=== PATIENT | male | born 1980 | race Two or more races ===

== ENCOUNTER 2023-12-01 16:55 | Emergency (ER) | payer SELFPAY ==
[2023-12-01 16:55] VITALS: BP 162/107; PULSE 94; RESP 22; TEMP 36.9; O2SAT 100
[2023-12-01] MEDS: ASPIRIN 81 MG CHEWABLE TABLET 324 MG PO (16:55)
--- NOTE | 2023-12-01 17:59 | ED.CHESTPAIN ---
HPI - Chest Pain General Chief Complaint: Chest Pain Stated Complaint: chest pains Time Seen by Provider: 12/01/23 16:55 Source: patient and family Mode of arrival: ambulatory Limitations: no limitations History of Present Illness HPI narrative: Bob is a 43 year old male patient presenting to the clinic today with complaints of midsternal chest pain and shortness of breath. Family member reports symptoms started approximately 20 minutes prior to arrival. Unable to get any medical history as patient does not speak Khmer. 911 was called as family members were agitated and pushing this provider in the room- demanding for 911 to be called for the patient to go to the emergency room right now. Related Data Home Medications Medication Instructions Recorded Confirmed No Home Medications 12/01/23 12/01/23 Allergies Allergy/AdvReac Type Severity Reaction Status Date / Time No Known Allergies Allergy Verified 12/01/23 17:36 Review of Systems Review of Systems: Pertinent positives per HPI. Patient denies any fever, chills, rash, headache, visual changes, dizziness, cough, runny nose, sore throat, shortness of breath, chest pain, palpitations, nausea, vomiting, diarrhea, constipation, abdominal pain, or any urinary issues. PMFSH Comments At the time of my signature, I reviewed and agree with the nursing past medical, surgical, social, and family history. There is no relevant family history pertinent to the patient complaint. Exam Narrative: General: Well-developed, well nourished, in acute distress/ill-appearing Head: Normocephalic, atraumatic. Cardio: Regular rate and rhythm, s1 and s2 normal, no murmur appreciated. Resp: Clear to auscultation bilaterally, no rhonchi, rales, wheezing or rubs. Extremities: No deformity, no edema, no cyanosis, capillary refill less than 2 seconds, peripheral pulses palpable and strong. Integumentary: [place], warm, and diaphoretic, intact without lesion, no rashes. Course Course Emergency Course: Portions of this record may have been created with voice recognition software. Level of Care: Express Care Visit Vital Signs Vital signs: Vital signs reviewed MDM - Chest Pain MDM Narrative Medical decision making narrative: At the time of visit patient on the exam table. Patient appears to be nontoxic. EKG: EKG shows normal sinus rhythm with heart rate of 68 beats per minute with possible right bundle-branch block. No ST elevation, depression, or T-wave inversion noted. Medication given: 324mg baby aspirin Plan: 18 gauge INT was inserted into the right AC. Four baby aspirins were administered. Recommend transfer to the emergency room for further evaluation. Contacted EMS for transport. Report was given to Dr. Quintana at [facility] as well as Carlin Sharma in [facility]. EMS loaded and transported the patient to the ER. Differential Diagnosis Differential diagnosis: Likely fracture of rib, pneumothorax, stable angina, unstable angina pectoris, atypical chest pain, st elevation myocardial infarction, costochondritis and chest pain ECG Data EKG #1: Attestation: I personally reviewed and interpreted this ECG as follows: ECG completion date: 12/01/23 ECG completion time: 16:59 Prior ECG tracings: not available for review Interpretation: EKG shows normal sinus rhythm with a heart rate 60 beats per minute with possible right bundle-branch block. No ST elevation, depression, or T-wave inversion noted. DC interval is 190 milliseconds, QRS duration is 160 milliseconds, QT-QTC is 380-398 milliseconds, P-R-T axis is 30 77 14 Discharge Plan Discharge Clinical Impression: Chest pain Qualifiers: Chest pain type: unspecified Qualified Code(s): R07.9 - Chest pain, unspecified Patient Disposition: Acute Care Hospital Condition: Stable Instructions: Antibiotic Form Prescriptions: No Action No Home Medications Follow-up/R
--- NOTE | 2023-12-01 19:04 | ECG_ITS ---
Test Date: 2023-12-01 16:59:50 Measurements Intervals [place] Rate: 68 P: 30 NM: 190 QRS: 77 QRSD: 116 T: 14 QT: 380 QTc: 406 Interpretive Statements SINUS RHYTHM INTERPRETATION BASED ON A DEFAULT AGE OF 40 YEARS No previous ECG available for comparison Electronically Signed On 12-02-2023 17:04:08 CDT by Lakia Nieto M.D.
== END 2023-12-01 17:10 | disposition short-term general hospital (02) ==
PROVIDERS: Emergency Provider Nurse Practitioner Family
DX: R07.9 Chest pain, unspecified (principal)
CPT/HCPCS: 93005; 99213; 99215; A9270; G0463

== ENCOUNTER 2023-12-01 17:29 | Observation (INO) | payer SELFPAY ==
[2023-12-01] VITALS (8 sets, daily range): BP systolic 110–164; BP diastolic 61–96; PULSE 62–74; RESP 14–20; TEMP 36.8–36.9; O2SAT 97–99; BMI 36.3
--- NOTE | ~2023-12-01 | CT_ITS ---
EXAMINATION: CTA chest PE protocol DATE: 12/01/2023 20:59 INDICATION: CP TECHNIQUE: Computed tomography angiography (CTA) of the chest was performed with 100 mL Omnipaque-350 intravenous contrast timed to evaluate the pulmonary arteries. Coronal maximum intensity projection 3D-reconstructions were created by the technologist. The dose-length product (DLP) was 653.78 mGy-cm. Automated exposure control and iterative reconstruction technique were employed. COMPARISON: X-ray chest, same date. FINDINGS: Lung parenchyma and airways: Minimal dependent atelectasis. Patent airways. Pleura: Unremarkable. Thoracic inlet, axillae and chest wall: Unremarkable. Thoracic aorta: No significant dilation. No dissection. Mediastinum: Normal. Heart and pericardium: Normal. Coronary artery calcifications: Absent. Upper abdomen: No significant finding. Bones: No acute osseous finding. Pulmonary arteries: Study quality: Motion artifact. Streak artifact from the contrast column limits e valuation of the segmental right upper lobe arteries. No pulmonary emboli detected. IMPRESSION: No CT evidence of acute pulmonary embolus, within the limitations noted above. No acute process detected in the chest. Reviewed, dictated and finalized at location K.
--- NOTE | ~2023-12-01 | XR_ITS ---
EXAMINATION: XR chest 1V portable Exam Date/Time: 12/01/2023 18:10 CDT HISTORY: cp Comparison: None. RESULT: Lines, tubes, and devices: None. Lungs and pleura: Clear. Cardiomediastinal silhouette: Normal. Other: No acute osseous or upper abdominal finding. IMPRESSION: No acute cardiopulmonary process. Reviewed, dictated and finalized at location K.
--- NOTE | 2023-12-01 17:31 | ECG_ITS ---
Test Date: 2023-12-01 17:30:33 Measurements Intervals [place] Rate: 69 P: 31 NH: 188 QRS: 75 QRSD: 133 T: 96 QT: 411 QTc: 441 Interpretive Statements SINUS RHYTHM Compared to ECG 12/01/2023 16:59:50 No significant changes Electronically Signed On 12-02-2023 17:06:11 CDT by Lakia Nieto M.D.
[2023-12-01 17:44] LABS: Basophils Absolute Auto 0.1 K/mm3 (0.0-0.1); Basophils Percent Auto 0.5 % (0.2-1.2); Eosinophils Absolute Auto 0.3 K/mm3 (0-0.3); Eosinophils Percent Auto 2.8 % (0-4.4); Hematocrit 46.7 % (42.0-52.0); Hemoglobin 16.3 g/dL (14.0-18.0); Immature Granulocyte Absolute 0.02 K/mm3 (0.00-0.031); Immature Granulocyte Percent A 0.2 % (0-0.5); Lymphocytes Absolute Auto 3.67 K/mm3 (0.9-3.2); Lymphocytes Percent Auto 40.1 % (18.3-44.2); Mean Corpuscular HGB Conc 34.9 g/dl (32-36); Mean Corpuscular Hemoglobin 32.7 pg (26-34); Mean Corpuscular Volume 93.6 fl (80-100); Mean Platelet Volume 9.6 fl (7.4-10.4); Monocytes Absolute Auto 0.8 K/mm3 (0.1-0.6); Monocytes Percent Auto 8.4 % (2.6-8.5); Neutrophils Absolute Auto 4.4 K/mm3 (1.3-6.7); Platelet Count Result 209 k/mm3 (150-375); Red Blood Count 4.99 M/mm3 (4.6-6.20); Red Cell Distribution Width 13.2 % (11.5-14.5); White Blood Count 9.2 K/mm3 (4.5-10.0)
--- NOTE | 2023-12-01 19:06 | ED.CHESTPAIN ---
HPI - Chest Pain General Chief Complaint: Chest Pain <Eddie Quintana MD - Last Filed: 12/02/23 11:48> Stated Complaint: CP, STEMI <Eddie Quintana MD - Last Filed: 12/02/23 11:48> Time Seen by Provider: 12/01/23 17:38 <Eddie Quintana MD - Last Filed: 12/02/23 11:48> History of Present Illness HPI narrative: 43-year-old male presented to the emergency department for evaluation for chest pain. Patient initially had approximately 30 minutes of chest pain and presented to the urgent care. Patient's EKG is were actually concerning for possible STEMI so patient was transferred by EMS to the emergency department. STEMI was called in the field but upon arrival to the emergency department patient was pain free an EKG showed no evidence of acute STEMI. Patient does speak Arabic and he does have a family member here to translate for him. Family states that the patient has no significant past medical history, no history of coronary artery disease and takes no medications. <Eddie Quintana MD - Last Filed: 12/02/23 11:48> Related Data Home Medications: Home Medications Medication Instructions Recorded Confirmed No Home Medications 12/01/23 12/01/23 <Eddie Quintana MD - Last Filed: 12/02/23 11:48> Allergies/Adverse Reactions: Allergies Allergy/AdvReac Type Severity Reaction Status Date / Time No Known Allergies Allergy Verified 12/01/23 17:36 <Eddie Quintana MD - Last Filed: 12/02/23 11:48> Review of Systems Review of Systems: All systems reviewed & are unremarkable except as noted in HPI and below <Eddie Quintana MD - Last Filed: 12/02/23 11:48> [facility] Social History Social History: Social History Smoking packs per day: 1 Smoking cigarettes per day: 20.0 Years smoked: 14 Smoking pack-years: 14.00 Smoking status: Current every day smoker Tobacco type: cigarettes Alcohol intake: former Substance use: never Do You Feel Safe in your Home?: Yes Lack of Transportation: No Lack of Food: Never True Current Housing: I Have Housing Concerned About Future Housing: No Difficulty Paying Gas/Electric Bills: No Difficulty Paying for Meds: No Currently Unemployed: YES Education: Trade/Vocational Certificate Difficulty w/ Childcare or Family Care: No Gender identity (if verbalized by the patient): Male Sexual Orientation (if Verbalized by the Patient): Straight or Heterosexual Spiritual care concerns: No <Eddie Quintana MD - Last Filed: 12/02/23 11:48> Exam Narrative: APPEARANCE: Well appearing, no pain, no distress, well-nourished. HEAD: normocephalic, atraumatic. EYES: PERRLA/EOMI, conjunctivae clear. NOSE: Normal no drainage EARS:TMS clear with good light reflex. THROAT: Pharynx clear, no exudate. NECK: Supple. No adenopathy, no masses. RESPIRATORY: Airway patent, respirations nonlabored. Clear to auscultation bilaterally, no rales, rhonchi, wheezing. CARDIOVASCULAR: Regular rate and rhythm without murmurs rubs or gallops. ABDOMINAL: Soft, nontender, nondistended, normal bowel sounds MUSCULOSKELETAL: Moves all extremities. Strength/ROM intact, No edema, No calf tenderness. NEURO: Alert. Cranial nerves II through XII intact. Good gait. Good coordination SKIN: Warm, dry. Normal Color <Eddie Quintana MD - Last Filed: 12/02/23 11:48> Course Vital Signs Vital signs: Vital Signs Temperature 98.2 F 12/01/23 17:28 Pulse Rate 73 12/01/23 17:28 Respiratory Rate 20 12/01/23 17:28 Blood Pressure 164/94 H 12/01/23 17:28 Pulse Oximetry 97 12/01/23 17:28 Oxygen Delivery Room Air 12/01/23 17:28 Temperature 97.2 F L 12/02/23 11:31 Pulse Rate 67 12/02/23 11:32 Respiratory Rate 18 12/02/23 11:31 Blood Pressure 156/89 H 12/02/23 11:31 Pulse Oximetry 95 12/02/23 11:31 Oxygen Delivery Room Air 12/02/23 08:57 Fraction of Inspired
[2023-12-01 19:08] LABS: Alanine Aminotransferase 17 U/L (6-50); Albumin Level 4.1 g/dL (3.5-5.1); Alkaline Phosphatase 76 U/L (38-126); Anion Gap 6 mmol/L (4-12); Aspartate Amino Transferase 21 U/L (17-59); Bilirubin,Total 0.6 mg/dL (0.2-1.3); Blood Urea Nitrogen 11 mg/dL (9-20); Calcium 8.7 mg/dL (8.4-10.2); Carbon Dioxide 27 mmol/L (22-30); Chloride 104 mmol/L (98-107); Cholesterol 170 mg/dL (0-200); Estimated Glomerular Filt Rate > 60; Glucose 117 mg/dL (65-110); HDL Direct 32 mg/dL; Potassium 3.6 mmol/L (3.4-5.0); Sodium 137 mmol/L (137-145); Triglycerides 120 mg/dL (<150)
[2023-12-01 19:12] LABS: INR 1.1; Prothrombin Time 14.4 Seconds (11.1-14.7)
[2023-12-01 19:13] LABS: Partial Thromboplastin Time 27.2 Seconds (22.3-36.8)
[2023-12-01 19:19] LABS: LDL Cholesterol Direct 115 mg/dL
[2023-12-01 19:29] LABS: Troponin I 0.167 ng/mL (0.000-0.034)
--- NOTE | 2023-12-01 20:59 | PC.NURSE ---
Attempted to call report to IMU and was told RN would have to call back in a couple of minutes.
--- NOTE | 2023-12-01 21:07 | PM.IMHP ---
H&P: HPI History of Present Illness Date/Time: 12/01/23 21:07 Chief Complaint: Chest pain Narrative: 43-year-old male presented to the emergency department for evaluation for chest pain. Patient initially had approximately 30 minutes of chest pain and presented to the urgent care. he waas driving when the pain started, middle of the chest, non radiating, sharp and severe. felt a bit nauseated and sweaty when that happened. callled his son and went to urgent care. Patient's EKG is were actually concerning for possible STEMI so patient was transferred by EMS to the emergency department. STEMI was called in the field but upon arrival to the emergency department patient was pain free an EKG showed no evidence of acute STEMI. Patient does speak Bulgarian and he does have a family member here to translate for him. Family states that the patient has no significant past medical history, no history of coronary artery disease and takes no medications. he has intermittent chest pain since then but has not had since 4 pm today. it resolved with nitro and aspirin administration in the urgent care Review of Systems Review of Systems: - CONSTITUTIONAL: Denies weight loss, fever and chills. - HEENT: Denies changes in vision and hearing - RESPIRATORY: Denies SOB and cough. - CV: Denies palpitations and reports CP. - GI: Denies abdominal pain, nausea, vomiting and diarrhea. - : Denies dysuria and urinary frequency. - MSK: Denies myalgia and joint pain. - SKIN: Denies rash and pruritus. - NEUROLOGICAL: Denies headache and syncope. - PSYCHIATRIC: Denies recent changes in mood. Denies anxiety and depression. [facility] Social History Social History Smoking packs per day: 1 Smoking cigarettes per day: 20.0 Years smoked: 14 Smoking pack-years: 14.00 Smoking status: Current every day smoker Tobacco type: cigarettes Alcohol intake: former Substance use: never Do You Feel Safe in your Home?: Yes Lack of Transportation: No Lack of Food: Never True Current Housing: I Have Housing Concerned About Future Housing: No Difficulty Paying Gas/Electric Bills: No Difficulty Paying for Meds: No Currently Unemployed: YES Education: Trade/Vocational Certificate Difficulty w/ Childcare or Family Care: No Gender identity (if verbalized by the patient): Male Sexual Orientation (if Verbalized by the Patient): Straight or Heterosexual Spiritual care concerns: No Meds Home Medications and Allergies Home Medications Medication Instructions Recorded Confirmed Type No Home Medications 12/01/23 12/01/23 History Allergies Allergy/AdvReac Type Severity Reaction Status Date / Time No Known Allergies Allergy Verified 12/01/23 17:36 Vital Signs Vital Signs - 24 hr 12/01/23 17:28 12/01/23 17:38 12/01/23 18:02 Temperature 98.2 F Pulse Rate 73 74 Respiratory Rate 20 18 Blood Pressure 164/94 H 125/62 Pulse Oximetry 97 97 Oxygen Delivery Room Air Room Air 12/01/23 18:32 12/01/23 19:37 12/01/23 20:30 Temperature Pulse Rate 71 62 64 Respiratory Rate 18 20 14 Blood Pressure 118/93 H 110/74 115/61 Pulse Oximetry 98 97 99 Oxygen Delivery Exam Narrative: APPEARANCE: Well appearing, no pain, no distress, well-nourished. HEAD: normocephalic, atraumatic. EYES: PERRLA/EOMI, conjunctivae clear. NOSE: Normal no drainage EARS:TMS clear with good light reflex. THROAT: Pharynx clear, no exudate. NECK: Supple. No adenopathy, no masses. RESPIRATORY: Airway patent, respirations nonlabored. Clear to auscultation bilaterally, no rales, rhonchi, wheezing. CARDIOVASCULAR: Regular rate and rhythm without murmurs rubs or gallops. ABDOMINAL: Soft, nontender, nondistended, normal bowel sounds MUSCULOSKELETAL: Moves all extremities. Strength/ROM intact, No edema, No calf tenderness. NEURO: Alert. Cranial nerves II through XII inta
--- NOTE | 2023-12-01 21:20 | PC.NURSE ---
Attempted to get pt into wheelchair to take upstairs, pt insisted on stepping outside for fresh air while making a motion suggesting smoking a cigarette. This RN informed pt that he is not allowed to step out side nor is he allowed to smoke. Pt stated if he did not smoke he would be leaving the hospital and started walking to exit. ED Charge, Lori informed and told pt he is not allowed to step outside to smoke because this is a non smoking facility. YOBANY Sandoval offered pt a nicotine patch. After debating back and forth, pt agreed to go upstairs for admission. ED security assisted and dimension warehouse supervisor notified.
--- NOTE | 2023-12-01 21:25 | ADMGEN ---
This patient, Bob Rojas, was admitted to IMU Room 201-01. Patient/family oriented to hospital policies and general routines including ID bracelet, bed and alarms, visiting hours, pain management, procedures, bathroom and other care routines, personal items, smoking policy, room service/diet, and visiting hours. Information on how to activate the Rapid Response Team has been discussed. Patient/Family are encouraged to report perceived risks to care and to ask questions if they do not understand what they are told or what they should do.
[2023-12-01] MEDS: HEPARIN SOD/D5W 100 UNITS/ML 25,000 UNITS/250 ML BAG 13 UNITS IV CONT (22:03)
[2023-12-01 22:04] LABS: Basophils Absolute Auto 0.1 K/mm3 (0.0-0.1); Basophils Percent Auto 0.6 % (0.2-1.2); Eosinophils Absolute Auto 0.1 K/mm3 (0-0.3); Eosinophils Percent Auto 1.6 % (0-4.4); Hematocrit 46.4 % (42.0-52.0); Hemoglobin 15.9 g/dL (14.0-18.0); Immature Granulocyte Absolute 0.03 K/mm3 (0.00-0.031); Immature Granulocyte Percent A 0.4 % (0-0.5); Lymphocytes Percent Auto 32.2 % (18.3-44.2); Mean Corpuscular HGB Conc 34.3 g/dl (32-36); Mean Corpuscular Volume 93.4 fl (80-100); Mean Platelet Volume 9.4 fl (7.4-10.4); Monocytes Absolute Auto 0.5 K/mm3 (0.1-0.6); Monocytes Percent Auto 5.7 % (2.6-8.5); Neutrophils Percent Auto 59.5 % (45.5-73.1); Platelet Count Result 207 k/mm3 (150-375); Red Blood Count 4.97 M/mm3 (4.6-6.20); Red Cell Distribution Width 13.2 % (11.5-14.5); White Blood Count 8.4 K/mm3 (4.5-10.0)
[2023-12-01] MEDS: HEPARIN SODIUM 5,000 UNITS/ML VIAL 6000 UNITS IV PUSH (22:04)
[2023-12-01 22:21] LABS: Hemoglobin A1C 5.9 % (<5.7)
[2023-12-01 22:26] LABS: INR 1.1; Prothrombin Time 14.8 Seconds (11.1-14.7)
[2023-12-01 22:45] LABS: Cholesterol 165 mg/dL (0-200); HDL Direct 30 mg/dL; Triglycerides 117 mg/dL (<150)
[2023-12-01 22:56] LABS: LDL Cholesterol Direct 109 mg/dL
[2023-12-01 22:57] LABS: Troponin I 0.599 ng/mL (0.000-0.034)
[2023-12-02] VITALS (35 sets, daily range): BP systolic 98–156; BP diastolic 59–100; PULSE 48–95; RESP 16–21; TEMP 35.8–36.4; O2SAT 94–100
--- NOTE | 2023-12-02 | ECHO_ITS ---
Patient Info Name: Bob Rojas Age: 43 years : 1980 Gender: Male Ht: 63 in Wt: 208 lbs BSA: 2.09 m2 HR: 71 bpm BP: 148 / 92 mmHg Heart Rhythm: Sinus Rhythm Technical Quality: Fair Exam Date: 12/02/2023 11:04 AM Exam Location: Echo Lab Patient Status: Inpatient Admit Date: 12/01/2023 Staff Ordering Physician: Lakia Nieto MD (hang/sherron) Broom Maker: Ludwig Cardozo RDCS Attending Provider: Krystian Morelos DO Referring Physician: Gerson WHEATLEY; Exam Type: CA echo dop color flow w con Study Info Indications - Chest pain Complete two-dimensional, color flow and Doppler transthoracic echocardiogram is performed with contrast to opacify the left ventricle and to improve the deliniation of the left ventricle endocardial borders. Contrast/Agitated Saline Contrast/Ag. Saline: Definity Amount: 6.00 ml Existing IV Access: Yes Summary 1. Left ventricular chamber dimension is normal. 2. There is mildly increased left ventricular wall thickness. 3. Left ventricular systolic function is normal, estimated at 50-55%. 4. The anterolateral wall appears hypokinetic. 5. Right ventricular systolic function is normal. 6. No significant valvular disease. Left Ventricle The anterolateral wall appears hypokinetic. Left ventricular chamber dimension is normal. Left ventricular systolic function is normal, estimated at 50-55%. There is mildly increased left ventricular wall thickness. Right Ventricle Right ventricular chamber dimension is normal. Right ventricular systolic function is normal. Left Atria Left atrial chamber dimension is normal. Right Atria Right atrial chamber dimension is normal. Atrial Septum Intact interatrial septum visualized by color flow imaging. Aortic Valve The aortic valve is not well visualized. There is no aortic valve stenosis. There is no aortic valve regurgitation. Pulmonic Valve The pulmonic valve is not well visualized. There is no pulmonic regurgitation. Mitral Valve There is trace mitral valve regurgitation. Tricuspid Valve There is trace tricuspid valve regurgitation. Pericardium/Pleural There is no pericardial effusion. Inferior Vena Cava Normal inferior vena cava with >50% collapse upon inspiration consistent with normal right atrial pressure, 3 mmHg. Aorta The aortic root size at the sinus of Valsalva is normal. Left Ventricular Outflow Tract Name Value Normal LVOT 2D LVOT Diameter 2.17 cm LVOT Doppler LVOT Peak Gradient 4 mmHg LVOT Mean Gradient 2 mmHg LVOT VTI 19.81 cm LVOT VTI/AV VTI Ratio 0.68 LVOT Stroke Volume 73.07 ml LVOT CO 4.74 l/min LVOT CI 2.27 L/min/m2 Pulmonic Valve Name Value Normal PV Doppler PV Peak Gradient
[2023-12-02 01:26] LABS: Troponin I 0.673 ng/mL (0.000-0.034)
[2023-12-02 04:32] LABS: Basophils Absolute Auto 0.1 K/mm3 (0.0-0.1); Basophils Percent Auto 0.7 % (0.2-1.2); Eosinophils Absolute Auto 0.3 K/mm3 (0-0.3); Eosinophils Percent Auto 3.5 % (0-4.4); Hematocrit 46.8 % (42.0-52.0); Hemoglobin 16.1 g/dL (14.0-18.0); Immature Granulocyte Absolute 0.02 K/mm3 (0.00-0.031); Immature Granulocyte Percent A 0.2 % (0-0.5); Lymphocytes Absolute Auto 4.05 K/mm3 (0.9-3.2); Lymphocytes Percent Auto 46.2 % (18.3-44.2); Mean Corpuscular HGB Conc 34.4 g/dl (32-36); Mean Corpuscular Hemoglobin 32.4 pg (26-34); Mean Corpuscular Volume 94.2 fl (80-100); Mean Platelet Volume 9.2 fl (7.4-10.4); Monocytes Absolute Auto 0.6 K/mm3 (0.1-0.6); Monocytes Percent Auto 6.5 % (2.6-8.5); Neutrophils Absolute Auto 3.8 K/mm3 (1.3-6.7); Neutrophils Percent Auto 42.9 % (45.5-73.1); Platelet Count Result 186 k/mm3 (150-375); Red Blood Count 4.97 M/mm3 (4.6-6.20); Red Cell Distribution Width 13.4 % (11.5-14.5); White Blood Count 8.8 K/mm3 (4.5-10.0)
[2023-12-02 04:42] LABS: Alanine Aminotransferase 17 U/L (6-50); Albumin Level 3.8 g/dL (3.5-5.1); Alkaline Phosphatase 78 U/L (38-126); Anion Gap 7 mmol/L (4-12); Aspartate Amino Transferase 22 U/L (17-59); Bilirubin,Total 0.5 mg/dL (0.2-1.3); Blood Urea Nitrogen 13 mg/dL (9-20); Calcium 8.5 mg/dL (8.4-10.2); Carbon Dioxide 24 mmol/L (22-30); Chloride 105 mmol/L (98-107); Estimated CRCL calculation 117 ml/min; Estimated Glomerular Filt Rate > 60; Glucose 99 mg/dL (65-110); Magnesium 2.1 mg/dL (1.6-2.3); Potassium 3.6 mmol/L (3.4-5.0); Sodium 136 mmol/L (137-145)
[2023-12-02 04:45] LABS: Partial Thromboplastin Time 85.1 Seconds (22.3-36.8)
[2023-12-02] MEDS: ATORVASTATIN 40 MG TABLET 80 MG PO (08:48)
[2023-12-02] MEDS: ASPIRIN 81 MG CHEWABLE TABLET PO (08:49)
[2023-12-02 10:31] LABS: Partial Thromboplastin Time 76.9 Seconds (22.3-36.8)
--- NOTE | 2023-12-02 10:57 | PM.CNCAR ---
Assessment and Plan Assessment and plan (1) Non-ST elevation IA (NSTEMI): Code(s): I21.4 - Non-ST elevation (NSTEMI) myocardial infarction Status: Acute Assessment and Plan: Discussed diagnosis of NSTEMI with the patient and implications of a myocardial infarction. Discussed treatment/management steps. Recommend cardiac catheterization +/- PCI. Discussed indications for cath, procedure details, risks vs benefits, alternative management options. I did discuss with the patient that if he needed PCI and stent placement, he would need to be on uninterrupted DAPT, and the risk of stent thrombosis with noncompliance to DAPT therapy, and the implications/complications of stent thrombosis, including . Patient at this time is hesitant to undergo LHC. He prefers to see what transthoracic echocardiogram shows first and then make his decision for cath. Discussed with patient that we could do stress testing vs just medical management alone as alternative options, although LHC in conjunction with medical therapy is the optimal treatment approach for NSTEMI. As patient wants to hold off on cath for now, will let him eat. NPO at midnight. Echo pending, will follow up on results. Continue Heparin drip in the meantime. Trend troponins until peak. Continue ASA 81mg once daily, along with high intensity statin. Will start Toprol and PRN SL NTG. (2) Tobacco dependence: Code(s): F17.200 - Nicotine dependence, unspecified, uncomplicated Status: Acute Assessment and Plan: Nicotine patch offered. Encourage smoking cessation. (3) Prediabetes: Code(s): R73.03 - Prediabetes Status: Acute Assessment and Plan: Hgb A1c is 5.9, which is consistent with pre-diabetes. This would be a new diagnosis for the patient. Management as per primary team. Plan Recommendations and plan discussed with Hospitalist. History of Present Illness History of Present Illness Consult date/time: 12/02/23 10:57 Requesting physician: Eddie Quintana MD Consult reason: chest pain Reason For Visit: NSTEMI Narrative: We are consulted for NSTEMI. Bob Rojas is a 43 year old male with tobacco dependence and family history of coronary artery disease. Patient speaks only Maldivian. Communication with the patient done via the hydraulic chair assembler williams on the [facility] IPAD. His sons at bedside also assisted with history. Bob states he developed sudden onset substernal chest pain around 4:30PM on 11/30 while driving. No radiation of chest pain. Chest pain lasted for about 2-3 minutes and would resolved. Recurred in 10-15 minute intervals. Chest pain resolved after he received SL NTG in the ED. He was initially seen at Urgent Care, who recommended transfer to the [facility]. Patient was transported via EMS. At some point, as STEMI was called in the field, however, upon arrival to the [facility] ED, EKG did not show any evidence of STEMI, so it was canceled. Patient states his chest pain resolved with the SL NTG and has not recurred. Initial EKG showed sinus rhythm, mild T-wave abnormality in the lateral leads. Repeat EKG showed sinus rhythm, improvement in T-wave abnormality. Troponins found to be elevated at 0.167, followed by 0.599, followed by 0.673. CXR negative. CTA negative for PE or other acute findings. Patient started on Heparin drip and admitted for further management. Ion reports that his mother had a myocardial infarction at age 55. He smokes >1 ppd for the past 35 years. Reports occasional ETOH use. Denies illicit drug use. Review of Systems Review of Systems: All systems reviewed & are unremarkable except as noted in HPI and below (HPI) [facility] Social History Social History Smoking packs per day: 1 Smoking cigarettes per day: 20.0 Years smoked: 14 Smoking pack-years: 14.00 Smoking status: Current every day smoker Tobacco type: cigarettes Alcohol intake: former Substance use: never
[2023-12-02] MEDS: PERFLUTREN LIPID MICROSPHERES 1.5 ML VIAL DILUTED TO 10 ML TOTAL VOLUME IV PUSH (11:29)
--- NOTE | 2023-12-02 11:29 | IVDEFINITY ---
Prior to administration of IV Definity the patient was educated on the risks and benefits of the imaging enhancing agent including potential adverse side effects. The patient verbalized understanding. Allergies were verified. No exclusion criteria were identified and at least one of the following inclusion criteria were met: 1) physician request, 2) patient technically difficult to image (per the [place] [employer] Echocardi[employer] guidelines of two or more segments not discernable within the apical view), or 3) questionable left ventricular function. ?
[2023-12-02] MEDS: METOPROLOL SUCCINATE EXT REL 25 MG TABCR PO (11:32)
[2023-12-02] MEDS: NICOTINE (*PBKC) 21 MG PATCH 1 PATCH TRANSDERM (11:34)
[2023-12-02 11:37] LABS: Troponin I 0.503 ng/mL (0.000-0.034)
--- NOTE | 2023-12-02 13:36 | PC.NURSE ---
Pt to catheterization laboratory technician via stretcher. alfredo Balbuena/SONYA, at bedside with pt. Heparin gtt stopped by catheterization laboratory technician RN.
--- NOTE | 2023-12-02 15:20 | WPDMODSED ---
Moderate Sedation Note-Pt Data Patient Data Diagnosis: NSTEMI Present Complaint: NSTEMI Procedure to be performed/Plan: Coronary angiography, left heart cath, +/- PCI Allergies Allergy/AdvReac Type Severity Reaction Status Date / Time No Known Allergies Allergy Verified 12/01/23 17:36 Home Medications Medication Instructions Recorded Confirmed Type No Home Medications 12/01/23 12/01/23 History ticagrelor 90 mg tablet (Brilinta) 90 mg PO Q12HR #90 tabs 12/02/23 Rx Current Medications: Active Medications Acetaminophen (Acetaminophen 325 Mg Tablet) 650 mg PO Q4H PRN PRN Reason: Mild Pain (1-3) or Fever Aspirin (Aspirin 81 Mg Enteric Tablet) [facility] Atorvastatin Calcium (Atorvastatin 40 Mg Tablet) 80 mg PO DAILY [facility] Last Admin: 12/02/23 08:48 Dose: 80 mg Heparin Sodium (Porcine) (Heparin Sodium 5,000 Units/Ml Vial) 6,000 units IV PUSH PRN PRN PRN Reason: aPTT less than 55 seconds Heparin Sodium (Porcine) (Heparin Sodium 5,000 Units/Ml Vial) 3,000 units IV PUSH PRN PRN PRN Reason: aPTT 55 - 70 seconds Heparin Sodium/Dextrose (Heparin Sodium/D5w 100 Units/Ml) 25,000 units in 250 mls @ 0 mls/hr IV CONT .Q0M [facility]; Protocol Last Titration: 12/02/23 13:35 Dose: 0 units/hr, 0 mls/hr Sodium Chloride (Normal Saline Iv) 1,000 mls @ 125 mls/hr IV CONT .Q8H ONE Stop: 12/02/23 23:16 Metoprolol Succinate (Metoprolol Succinate Ext Rel 25 Mg Tabcr) [facility] Last Admin: 12/02/23 11:32 Dose: 25 mg Morphine Sulfate (Morphine Sulfate (*Crx) 4 Mg/Ml Inj) 4 mg IV PUSH Q2H PRN PRN Reason: Pain Rated 7-10 Nicotine (Nicotine (*Pbkc) 21 Mg Patch) 1 patch TRANSDERM DAILY [facility] Last Admin: 12/02/23 11:34 Dose: 1 patch Nitroglycerin (Nitroglycerin Sl 0.4 Mg Tablet) 0.4 mg SUBLINGUAL Q5MIN PRN PRN Reason: Chest Pain Ondansetron HCl (Ondansetron Inj 4 Mg/2 Ml Vial) 4 mg IV PUSH Q4H PRN PRN Reason: Nausea Ticagrelor (Ticagrelor 90 Mg Tablet) 90 mg PO Q12HR [facility] Sedation/Anesthesia: No previous sedation/anesthesia problems (including family history). [facility], [facility] Social History Social History Smoking packs per day: 1 Smoking cigarettes per day: 20.0 Years smoked: 14 Smoking pack-years: 14.00 Smoking status: Current every day smoker Tobacco type: cigarettes Alcohol intake: former Substance use: never Do You Feel Safe in your Home?: Yes Lack of Transportation: No Lack of Food: Never True Current Housing: I Have Housing Concerned About Future Housing: No Difficulty Paying Gas/Electric Bills: No Difficulty Paying for Meds: No Currently Unemployed: YES Education: Trade/Vocational Certificate Difficulty w/ Childcare or Family Care: No Gender identity (if verbalized by the patient): Male Sexual Orientation (if Verbalized by the Patient): Straight or Heterosexual Spiritual care concerns: No Mod Sed Physical Exam Physical Exam Pre Procedural Exam: Normal: Appearance, Heart Rate, Heart Rhythm, Neuro Exam, Extremities and Skin Hours since solid foods: 15 Hours since liquid intake: 8 Mallampati Classification: class III Internal Medicine - PN: Obj Da Vital Signs Vital Signs: Vital Signs - 24 hr 12/01/23 17:28 12/01/23 17:38 12/01/23 18:02 Temperature 36.8 C Pulse Rate 73 74 Respiratory Rate 20 18 Blood Pressure 164/94 H 125/62 Pulse Oximetry 97 97 Oxygen Delivery Room Air Room Air Fraction of Inspired Oxygen 12/01/23 18:32 12/01/23 19:37 12/01/23 20:30 Temperature Pulse Rate 71 62 64 Respiratory Rate 18 20 14 Blood Pressure 118/93 H 110/74 115/61 Pulse Oximetry 98 97 99 Oxygen Delivery Fraction of Inspired Oxygen 12/01/23 21:06 12/01/23 21:25 12/01/23 22:00 Temperature 36.9 C Pulse Rate 67 65 65 Respiratory Rate 16 20 Blood Pressure 151/82 H 141/96 H Pulse Oximetry 98 98 Oxygen Delivery Fraction of Inspired Oxygen 12/02/23 00:00 12/02/23 00:0
--- NOTE | 2023-12-02 15:21 | WPDCARDPROC ---
Cardiac Cath Procedure Note Date of procedure:: 12/02/23 Performing physician:: CATHETERIZATION LABORATORY REPORT Procedure Date: 12/02/2023 Pump Service Supervisor: Lakia Nieto M.D., [facility]? Referring Physician: Lakia Nieto M.D. ? Anesthesia: Versed and Fentanyl were ordered and given in my presence at 14:03, procedure ended at 15:10. Supervision of nurse monitored moderate sedation with Versed and Fentanyl was provided for 67 minutes. Total of Versed 1mg and Fentanyl 50mcg were administered by the Firearms Expert RN Mary Rebolledo. Pre-op Diagnosis: NSTEMI Post-op Diagnosis: 1. The proximal-mid portion of the Ramus has an eccentric 70% stenosis. S/p successful PCI with DALLIN x 1. 2. Left ventricular end-diastolic pressure of 27mmHg Procedure(s): 1. Moderate sedation 2. Ultrasound-guided access of the right radial artery 3. Coronary angiography 4. Left heart cath 5. PCI of the Ramus with DALLIN x 1 (3.5 mm x 22 mm Orsiro DALLIN, the mid portion and proximal portion of the stent was post-dilated to 4.0 mm). 6. IVUS of the Ramus Access Site: Right radial artery Brief History and Clinical Indications: Patient is a 43 year old male who is referred for [facility] for NSTEMI. All risks, benefits and alternatives to left heart catheterization with or without percutaneous coronary intervention was discussed at length with the patient. Risk of complications including but not limited to bleeding, infection, arrhythmia, stroke, worsening kidney function, blood loss, groin hematoma, limb loss, emergency coronary artery bypass grafting, and even were discussed with the patient and all questions were answered. The patient understood and wished to proceed. Time out called, patient name, date of , medical record number, allergies, procedure performed, identify Pump Service Supervisor, patient and staff member concurred with accurate data, procedure carried on. Findings: LEFT HEART CATHETERIZATION FINDINGS: 1. Left main: The left main coronary artery is widely patent without any significant obstructive disease. 2. Left anterior descending: The mid LAD has mild disease. Remainder of the LAD has mild luminal irregularities without any significant obstructive angiographic disease. 3. Ramus: The proximal-mid portion of the Ramus has an eccentric 70% stenosis. 4. Left circumflex: The LCX is a small caliber vessel. The left circumflex artery and the main marginal branches have mild luminal irregularities without any significant obstructive angiographic disease. 5. Right coronary artery: The RCA is the dominant vessel. The mid portion and distal portion has very mild disease. No significant obstructive angiographic disease. 6. Left ventricle: A. End-diastolic pressure 27 mmHg. B. LV gram deferred. C. No significant gradient across aortic valve on catheter pullback. Description of Procedure and PCI: Informed consent signed and placed in the chart. Patient transferred to laboratory apparatus glass blower room. Prepped and draped in usual sterile fashion. 2% lidocaine injected subcutaneously in right wrist area. 22-gauge venipuncture catheter used to access the right radial artery under ultrasound guidance. 6-FR slender sheath placed in right radial artery. Nitroglycerine and Verapamil were given intraarterial through the sheath. Versacore wire advanced under fluoroscopy 5F Tig 4 diagnostic catheter engaged Left Main Coronary Artery. 5F Tig 4 diagnostic catheter engaged Right Coronary Artery Multiple orthogonal angiogram obtained and reviewed Angiomax was used for anticoagulation. 6F CLS 3.0 guide catheter was used to intubate the left main. 0.014 [employer] coronary wire was passed in to the distal Ramus. While attempted to advance a 3.0 mm x 20 mm balloon, the guide catheter became disengaged with the patient's deep breathing and talking, and we lost wire access. The catheter was then re-engaged into the left main. The same [employer] wire was then re-advanced into the distal Ramus
--- NOTE | 2023-12-02 17:00 | PC.NURSE ---
Pt returned from catheterization laboratory technician via stretcher with TR band in place. Pt being recovered in room by catheterization laboratory technician RN.
--- NOTE | 2023-12-02 17:01 | PM.IMPN ---
Progress Note: A&P Assessment and Plan (1) Non-ST elevation TN (NSTEMI): Code(s): I21.4 - Non-ST elevation (NSTEMI) myocardial infarction Status: Acute (2) Chest pain: Qualifiers: Chest pain type: unspecified Qualified Code(s): R07.9 - Chest pain, unspecified Code(s): R07.9 - Chest pain, unspecified Status: Inactive (3) Tobacco dependence: Code(s): F17.200 - Nicotine dependence, unspecified, uncomplicated Status: Acute (4) Prediabetes: Code(s): R73.03 - Prediabetes Status: Acute Plan 43-year-old male presented to the emergency department for evaluation for chest pain. Patient initially had approximately 30 minutes of chest pain and presented to the urgent care. Patient's EKG is were actually concerning for possible STEMI so patient was transferred by EMS to the emergency department. STEMI was called in the field but upon arrival to the emergency department patient was pain free an EKG showed no evidence of acute STEMI. Patient does speak [place] and he does have a family member here to translate for him. Family states that the patient has no significant past medical history, no history of coronary artery disease and takes no medications. Treatment initiated for non ST elevation TN. aspirin atorvastatin heart rate in 60s will not add beta-aniceto at this time.cardiology has been consulteed in the ED> check a1c dvt proph: on heparin gtt pt sp heart cath today with Ramus: The proximal-mid portion of the Ramus has an eccentric 70% stenosis. Pt resting now in room watch overnite and dc in AM Subjective Date/time seen: 12/02/23 17:01 Interval history: 43-year-old male presented to the emergency department for evaluation for chest pain. Patient initially had approximately 30 minutes of chest pain and presented to the urgent care. he waas driving when the pain started, middle of the chest, non radiating, sharp and severe. felt a bit nauseated and sweaty when that happened. callled his son and went to urgent care. Patient's EKG is were actually concerning for possible STEMI so patient was transferred by EMS to the emergency department. pt actually with nstemi heparin drip started yesterday night Pt is npo pt going for heart cath today under cardiology Review of Systems Review of Systems: denies chest pain Exam Narrative: APPEARANCE: Well appearing, no pain, no distress, well-nourished. HEAD: normocephalic, atraumatic. EYES: PERRLA/EOMI, conjunctivae clear. NOSE: Normal no drainage EARS:TMS clear with good light reflex. THROAT: Pharynx clear, no exudate. NECK: Supple. No adenopathy, no masses. RESPIRATORY: Airway patent, respirations nonlabored. Clear to auscultation bilaterally, no rales, rhonchi, wheezing. CARDIOVASCULAR: Regular rate and rhythm without murmurs rubs or gallops. ABDOMINAL: Soft, nontender, nondistended, normal bowel sounds MUSCULOSKELETAL: Moves all extremities. Strength/ROM intact, No edema, No calf tenderness. NEURO: Alert. Cranial nerves II through XII intact. Good gait. Good coordination SKIN: Warm, dry. Normal Color Objective Data Vital Signs Vital Signs: Vital Signs - 24 hr 12/01/23 17:28 12/01/23 17:38 12/01/23 18:02 Temperature 36.8 C Pulse Rate 73 74 Respiratory Rate 20 18 Blood Pressure 164/94 H 125/62 Pulse Oximetry 97 97 Oxygen Delivery Room Air Room Air Fraction of Inspired Oxygen 12/01/23 18:32 12/01/23 19:37 12/01/23 20:30 Temperature Pulse Rate 71 62 64 Respiratory Rate 18 20 14 Blood Pressure 118/93 H 110/74 115/61 Pulse Oximetry 98 97 99 Oxygen Delivery Fraction of Inspired Oxygen 12/01/23 21:06 12/01/23 21:25 12/01/23 22:00 Temperature 36.9 C Pulse Rate 67 65 65 Respiratory Rate 16 20 Blood Pressure 151/82 H 141/96 H Pulse Oximetry 98 98 Oxygen Delivery Fraction of Inspired Oxygen 12/02/23 00:00 12/02/23 00:00 12/02/23 00:00 Temperature 35.8 C L
--- NOTE | 2023-12-02 20:47 | PC.NURSE ---
Resumed care of pt from pie bakery laborer rn. Vitals sign stable, Radial cath site has palpaple pulse, cap refill and normal sensation. See flow sheets for further details
[2023-12-02] MEDS: TICAGRELOR 90 MG TABLET PO (21:06)
[2023-12-03] VITALS (10 sets, daily range): BP systolic 130–149; BP diastolic 60–93; PULSE 59–78; RESP 12–20; TEMP 36.6–37; O2SAT 96–100
[2023-12-03 05:13] LABS: Partial Thromboplastin Time 27.8 Seconds (22.3-36.8)
[2023-12-03] MEDS: TICAGRELOR 90 MG TABLET PO (08:42)
[2023-12-03] MEDS: ATORVASTATIN 40 MG TABLET 80 MG PO (08:42)
[2023-12-03] MEDS: METOPROLOL SUCCINATE EXT REL 25 MG TABCR PO (08:42)
[2023-12-03] MEDS: NICOTINE (*PBKC) 21 MG PATCH 1 PATCH TRANSDERM (08:43)
[2023-12-03] MEDS: ASPIRIN 81 MG ENTERIC TABLET PO (08:43)
--- NOTE | 2023-12-03 12:20 | PM.DS ---
DS: Admitting Diagnosis Discharge Date 12/03/2023 Admitting Diagnosis Chest pain DS: Discharge Diagnosis Discharge Diagnosis (1) Non-ST elevation MT (NSTEMI): Code(s): I21.4 - Non-ST elevation (NSTEMI) myocardial infarction Status: Acute Assessment and Plan: 43-year-old male presented to the emergency department for evaluation for chest pain. Patient initially had approximately 30 minutes of chest pain and presented to the urgent care. Patient's EKG is were actually concerning for possible STEMI so patient was transferred by EMS to the emergency department. STEMI was called in the field but upon arrival to the emergency department patient was pain free an EKG showed no evidence of acute STEMI. Patient does speak Barbadian and he does have a family member here to translate for him. Family states that the patient has no significant past medical history, no history of coronary artery disease and takes no medications. Treatment initiated for non ST elevation MT. aspirin atorvastatin heart rate in 60s will not add beta-aniceto at this time.cardiology has been consulteed in the ED> check a1c dvt proph: on heparin gtt pt sp heart cath today with Ramus: The proximal-mid portion of the Ramus has an eccentric 70% stenosis. Pt resting now in room watch overnite and dc in AM (2) Chest pain: Qualifiers: Chest pain type: unspecified Qualified Code(s): R07.9 - Chest pain, unspecified Code(s): R07.9 - Chest pain, unspecified Status: Inactive Assessment and Plan: resolved since admission (3) Tobacco dependence: Code(s): F17.200 - Nicotine dependence, unspecified, uncomplicated Status: Acute Assessment and Plan: quit smoking adviced (4) Prediabetes: Code(s): R73.03 - Prediabetes Status: Acute Assessment and Plan: diet and excercise adviced Plan DS: Summary Hospital Course Hospital Course: 43-year-old male presented to the emergency department for evaluation for chest pain. Patient initially had approximately 30 minutes of chest pain and presented to the urgent care. Patient's EKG is were actually concerning for possible STEMI so patient was transferred by EMS to the emergency department. STEMI was called in the field but upon arrival to the emergency department patient was pain free an EKG showed no evidence of acute STEMI. Patient does speak Barbadian and he does have a family member here to translate for him. Family states that the patient has no significant past medical history, no history of coronary artery disease and takes no medications. Treatment initiated for non ST elevation MT. aspirin atorvastatin heart rate in 60s will not add beta-aniceto at this time.cardiology has been consulteed in the ED> check a1c dvt proph: on heparin gtt pt sp heart cath today with Ramus: The proximal-mid portion of the Ramus has an eccentric 70% stenosis. Pt resting now in room watch overnite and dc in AM Time Spent with Patient Time attestation: Total time spent providing and/or coordinating discharge services:50 minutes on day of dc Exam Narrative: APPEARANCE: Well appearing, no pain, no distress, well-nourished. HEAD: normocephalic, atraumatic. EYES: PERRLA/EOMI, conjunctivae clear. NOSE: Normal no drainage EARS:TMS clear with good light reflex. THROAT: Pharynx clear, no exudate. NECK: Supple. No adenopathy, no masses. RESPIRATORY: Airway patent, respirations nonlabored. Clear to auscultation bilaterally, no rales, rhonchi, wheezing. CARDIOVASCULAR: Regular rate and rhythm without murmurs rubs or gallops. ABDOMINAL: Soft, nontender, nondistended, normal bowel sounds MUSCULOSKELETAL: Moves all extremities. Strength/ROM intact, No edema, No calf tenderness. NEURO: Alert. Cranial nerves II through XII intact. Good gait. Good coordination SKIN: Warm, dry. Normal Color DS: Data Data Completed and Pending Labs on day of discharge: Labs from last 2
--- NOTE | 2023-12-03 13:02 | PC.NURSE ---
Interpretation service used for pt's discharge. All medications and instructions provided to pt in is [place] language of [place]. Pt states that he understands and will comply.
--- NOTE | 2023-12-03 13:14 | PM.PNCARD ---
Progress Note: A&P Assessment and Plan (1) Non-ST elevation [place] (NSTEMI): Code(s): I21.4 - Non-ST elevation (NSTEMI) myocardial infarction Status: Acute Assessment and Plan: status post PCI/DALLIN x 1 to the Ramus DAPT for 1 year with Brilinta/ASA. ASA indefinitely. Continue high intensity statin Continue risk factor modification for CAD Cardiac rehab OK for discharge today from a cardiac perspective. (2) Tobacco dependence: Code(s): F17.200 - Nicotine dependence, unspecified, uncomplicated Status: Acute Assessment and Plan: Nicotine patch offered. Encourage smoking cessation. (3) Prediabetes: Code(s): R73.03 - Prediabetes Status: Acute Assessment and Plan: Hgb A1c is 5.9, which is consistent with pre-diabetes. This would be a new diagnosis for the patient. Management as per primary team. Plan Recommendations and plan discussed with Hospitalist. Subjective Date/time seen: 12/03/23 13:14 Interval history: Cardiology follow up for CAD, NSTEMI Date of service 12/03/2023: He is feeling well today and has no complaints. Denies chest pain, shortness of breath, palpitations. Review of Systems Review of Systems: All systems reviewed & are unremarkable except as noted in HPI and below (HPI) Exam Const: General: comfortable and no acute distress HENMT: Mouth: Yes moist mucous membranes Other: Scar on nose Eyes: General: appearance normal, both eyes and all related structures Sclera: sclerae normal Neck: Neck: supple Resp: Effort & Inspection: normal respiratory effort Cardio: Rate: regular rate Rhythm: regular rhythm Heart sounds: no murmurs Skin: General skin exam: normal color Neuro: Speech: normal speech Extrem: Other: no edema R radial access site free from hematoma Psych: Mental Status: mental status grossly normal Affect: normal affect Objective Data Vital Signs Vital Signs: Vital Signs - 24 hr 12/02/23 15:45 12/02/23 16:00 12/02/23 16:15 Temperature Pulse Rate 60 60 66 Respiratory Rate 21 H 17 Blood Pressure 149/89 H 124/88 127/97 H Pulse Oximetry 94 96 97 Oxygen Delivery Room Air Room Air Room Air Fraction of Inspired Oxygen 12/02/23 16:45 12/02/23 17:00 12/02/23 16:30 Temperature Pulse Rate 64 63 62 Respiratory Rate 20 19 16 Blood Pressure 114/100 H 127/97 H 132/93 H Pulse Oximetry 97 97 97 Oxygen Delivery Room Air Room Air Room Air Fraction of Inspired Oxygen 12/02/23 17:15 12/02/23 18:00 12/02/23 18:15 Temperature Pulse Rate 65 74 71 Respiratory Rate 18 20 21 H Blood Pressure 145/97 H 143/72 H 117/77 Pulse Oximetry 98 98 100 Oxygen Delivery Room Air Room Air Room Air Fraction of Inspired Oxygen 12/02/23 18:30 12/02/23 18:45 12/02/23 19:00 Temperature Pulse Rate 84 94 84 Respiratory Rate 16 17 20 Blood Pressure 118/74 136/82 120/73 Pulse Oximetry 97 95 95 Oxygen Delivery Room Air Room Air Room Air Fraction of Inspired Oxygen 12/02/23 19:15 12/02/23 19:30 12/02/23 19:45 Temperature Pulse Rate 95 69 70 Respiratory Rate 18 19 20 Blood Pressure 118/70 112/68 123/82 Pulse Oximetry 95 95 96 Oxygen Delivery Room Air Room Air Room Air Fraction of Inspired Oxygen 12/02/23 20:30 12/02/23 20:00 12/02/23 20:15 Temperature Pulse Rate 75 73 75 Respiratory Rate 19 19 20 Blood Pressure 98/68 L 129/71 129/68 Pulse Oximetry 98 98 99 Oxygen Delivery Room Air Room Air Room Air Fraction of Inspired Oxygen 12/02/23 21:00 12/02/23 20:45 12/02/23 22:06 Temperature 36.4 C 36.4 C Pulse Rate 61 61 72 Respiratory Rate 18 18 18 Blood Pressure 147/82 H 144/70 H Pulse Oximetry 96 96 98 Oxygen Delivery Room Air Fraction of Inspired Oxygen 21 12/02/23 23:00 12/03/23 00:00 12/02/23 20:00 Temperature 36.4 C L Pulse Rate 68 68 77 Respiratory Rate 18 18 Blood Pressure 117/59 L Pulse Oximetry 96 96 Oxygen Delivery Room Air Fract
== END 2023-12-03 13:03 | disposition home or self-care (01) ==
LOC: ANHED 19:49 → ANHIMU 20:53
PROVIDERS: Emergency Medicine; Internal Medicine; Nurse Practitioner Acute Care; Admitting Provider Student in an Organized Health Care Education/Training Program; Emergency Provider Emergency Medicine; Visit Provider Family Medicine
PROC: 4A023N7 Measurement of Cardiac Sampling and Pressure, Left Heart, Percutaneous Approach (ICD-10-PCS; CPT 93452; principal; 2023-12-02 13:30)
PROC: 027034Z Dilation of Coronary Artery, One Artery with Drug-eluting Intraluminal Device, Percutaneous Approach (ICD-10-PCS; CPT 92928; 2023-12-02 13:30)
DX: I21.4 Non-ST elevation (NSTEMI) myocardial infarction (principal); I25.10 Atherosclerotic heart disease of native coronary artery without angina pectoris; R73.03 Prediabetes; F17.210 Nicotine dependence, cigarettes, uncomplicated
CPT/HCPCS: 36415; 71045; 71275; 80053; 80061; 83036; 83735; 84443; 84484; 85025; 85610; 85730; 86850; 86900; 86901; 92978; 93005; 93458; 96365; 96366; 96375; 99285; A9270; C1725; C1753; C1769; C1874; C1887; C1894; C8929; C9600; G0378; J0583; J1644; J2250; J2305; J3010; J7040; Q9957; Q9967